=== PATIENT | female | born 1975 | race Caucasian/White ===

== ENCOUNTER 2020-08-22 06:49 | Outpatient (REF) | payer BC, SELFPAY | END 2020-08-22 06:50 | disposition home or self-care (01) | LOC: HO.LAB 06:49 | PROVIDERS: Visit Provider Internal Medicine | DX: Z20.828 Contact with and (suspected) exposure to other viral communicable diseases (principal) | CPT/HCPCS: C9803; U0003 ==

== ENCOUNTER 2025-03-28 15:38 | Outpatient (AMB) | payer BC, OTHER, SELFPAY ==
--- OUTSIDE RECORDS SUMMARY | 2025-03-28 07:09 | XMS_ITS ---
Author Organization [facility] Address [address] [place] [phone] Care Team Providers Care Asphalt Worker Name Role Phone SALBADOR MARCUM Primary Care Provider REASON FOR VISIT Referral/appt today Encounters Encounter Location Date Provider Diagnosis [facility] [address] [place] [address] 03/28/2025 SALBADOR MARCUM PLAN OF TREATMENT Next Appt Details Provider Name:SALBADOR MANNING, 04/25/2025 01:30:00 PM, [address] [place], [phone],
--- NOTE | 2025-03-28 15:41 | MHC.OFFVIS ---
Vital Signs 03/28/25 15:42 Height 5 ft 3 in Weight 189 lb BMI 33.5 BP 118/88 Blood Pressure Location Rt brachial Position Sitting Intake Visit Reasons: ENP - Tremors Intake Note: Patient referred for tremors Allergies Sulfa (Sulfonamide Antibiotics) Allergy (Unknown, Verified 03/28/25 15:42) Unknown sulfamethoxazole (From Bactrim) Allergy (Unknown, Verified 03/28/25 15:42) Unknown trimethoprim (From Bactrim) Allergy (Unknown, Verified 03/28/25 15:42) Unknown Medication List - Last Reconciled 03/28/25 by Guillermina Paredes MD atomoxetine 80 mg PO DAILY benztropine 1 mg PO DAILY cariprazine (Vraylar) 1.5 mg PO DAILY clonazepam (Klonopin) 1 mg PO DAILY hydroxyzine HCl 25 mg PO BEDTIME hyoscyamine sulfate 0.125 mg PO QIDACHS omeprazole 40 mg PO DAILY rosuvastatin (Crestor) 10 mg PO DAILY HPI Comments Details: 49y/o Right handed female with h/o Depression, anxiety, ADHD, h/o Colon Ca ( diagnosed at age 40- chemo and colon resection) comes for evaluation of tremors. She noticed tremors in her legs - R>L 1 year ago. she has mild tremors in both hands during fine motor coordination for many years .The leg tremors were new and she noticed when she was standing up and sometimes when she was sitting down. she notices sometimes when she drives.she is not able to point out to any exacerbating or reliving factors. She was started vraylar 3 mths after tremor started - she is not sure if it worsened her tremors she was started on Benztropine 1 mth after vraylar for perioral movements. she denies any back or neck pain. No weakness or numbness. SLeep- snores loudly , frequent arousals, hypersomnia , no leg cramps Cognition- has noticed some difficulty in the past 3 mths . Her mood is not well controlled. Increase in Vraylar dose did not help. she denies any suicidal thoughts. She reports h/o sharp pain in head - relieved after chiropractic treatment 20 years ago [facility] Medical History (Updated 03/28/25 @ 16:08 by Guillermina Paredes MD) Hypersomnia Snoring Coarse tremors Depression Anxiety ADHD Cancer, colon Surgical History H/O section H/O endoscopy Hx of colonoscopy Social History Alcohol intake: never Patient Tobacco Use Status: Never used Tobacco Use of substances other than those prescribed or required for medical reasons: Yes Substance Use Type: Other Substance Use Type Other:: edibles Physical Exam Vital Signs: Last Vital Signs BP 118/88 03/28/25 15:42 BMI result Body Mass Index 33.5 Const General: cooperative, healthy appearing and comfortable Nutritional Appearance: obese Orientation/consciousness: patient oriented x3 Eyes Pupils: Equal, round and reactive pupils present Neuro Other: Mallampatti grade 4 Mild Right leg tremors intermittent General: patient oriented x3, gait normal, tone normal, moves all extremities and no focal motor deficits Cranial nerves: Yes Facial sensation intact/muscles of mastication intact, Yes Equal, round and reactive pupils present, Yes Bilaterally intact EOM present, Yes Nystagmus not present, Yes Normal facial strength present, Yes Midline tongue present and Yes Symmetric palate elevation present Cognition (Neuro): normal cognition Gait exam (Neuro): Normal gait present Motor exam (neuro): 5/5 motor strength present throughout and Normal motor muscle tone present throughout Deep tendon reflexes (DTR's): Right triceps reflex intensity grade: 2+, Left triceps reflex intensity grade: 2+, Rt Biceps (C5, C6): 2+, Left biceps reflex intensity grade: 2+, Right brachioradialis reflex intensity grade: 2+, Left brachioradialis reflex intensity grade: 2+, Right patellar reflex intensity grade: 3+, Left patellar reflex intensity grade: 3+, Right ankle reflex intensity grade: 2+ and Left ankle reflex intensity grade: 2+ Coordination: [id number] test normal Assessment & Plan Assessment & Plan (1) Coarse tremors: Comment: ? mood related ? medication related ? clonus Code(s): G25.2 - Other specified forms of tremor Category: Medical (2) Snoring: Code(s): R06.83 - Snoring Category: Medical (3) Hypersomnia: Code(s): G47.10 - Hypersomnia, unspecified Category: Medical Plan No evidence of perioral dyskinesia today I will evaluate her with MRI Brain C spine X ray Sleep study to r/o sleep apnea. Orders: Orders XR cervical spine 4V Today G47.10 - Hypersomnia, unspecified, R06.83 - Snoring MR head/brain wo con Today G25.2 - Other specified forms of tremor RT home sleep study Today G47.10 - Hypersomnia, unspecified, R06.83 - Snoring Coding Level of Care Code New Pt Level 4 (29980) Complex EM visit Add On G2211 Diagnoses Coarse tremors G25.2 Snoring R06.83 Hypersomnia G47.10
[2025-03-28 15:42] VITALS: BP 118/88; BMI 33.5
--- OUTSIDE RECORDS SUMMARY | 2025-03-28 15:43 | XMS_ITS | Clinical Summary ---
Author Organization [facility] Address [address] [place] [address] Care Team Providers Care Varnishing Machine Operator Name Role Phone Abhijit George MD Primary Care Provider Allergies Active Allergy Reactions Criticality Noted Date Comments Sulfamethoxazole-Trimethoprim 2016 Sulfa Antibiotics 03/27/2017 Medications Medication Sig Dispensed Refills Start Date End Date Status Loratadine (CLARITIN PO) Take 5 mg by mouth every 12 (twelve) hours. 0 Active Oxycodone HCl 10 MG TABS Take 1 tablet (10 mg total) by mouth as needed. 0 Active omeprazole (PRILOSEC) 20 MG capsule Take 1 capsule (20 mg total) by mouth daily. 0 Active Cholecalciferol (VITAMIN D3) 2000 units capsule Take 2,000 Units by mouth daily. 0 Active buPROPion (WELLBUTRIN XL) 300 MG 24 hr tablet Take 1 tablet (300 mg total) by mouth daily. 0 Active vitamin C (ASCORBIC ACID) 500 MG tablet Take 1 tablet (500 mg total) by mouth daily. 0 Active ferrous sulfate 325 (65 FE) MG tablet Take 1 tablet (325 mg total) by mouth every morning with breakfast. 0 Active Multiple Vitamins-Minerals (MULTIVITAMIN ADULTS PO) Take by mouth daily. 0 Active Biotin 41055 MCG TBDP Take by mouth daily. 0 Active clonazePAM (KlonoPIN) 1 MG tablet Take 1 tablet (1 mg total) by mouth every night at bedtime. 0 Active citalopram (CeleXA) 10 MG tablet Take 1 tablet (10 mg total) by mouth daily. 0 Active Polyethylene Glycol 3350 (MIRALAX PO) Take by mouth. 0 Act veronica modafinil (PROVIGIL) 100 MG tablet Take 1 tablet (100 mg total) by mouth daily. 0 Active venlafaxine (EFFEXOR) 75 MG tablet Take 1 tablet (75 mg total) by mouth daily. 0 Active vortioxetine (Trintellix) 20 MG TABS tablet Take 1 tablet (20 mg total) by mouth daily. 0 Active atomoxetine (STRATTERA) 80 MG capsule Take 1 capsule (80 mg total) by mouth daily. 0 Active ondansetron (ZOFRAN) 4 MG tablet Take by mouth. 0 Active Active Problems Problem Noted Date Diagnosed Date Malignant neoplasm of sigmoid colon 04/30/2017 Family History Medical History Relation Name Comments Cancer Father melanoma Cancer Maternal Aunt 1 lymphoma Cancer Maternal Aunt 2 melonoma Cancer Mother bladder ca. Relation Name Status Comments Father Maternal Aunt 1 Maternal Aunt 2 Mother Social History Tobacco Use Types Packs/Day Years Used Date Smoking Tobacco: Never Smokeless Tobacco: Never Alcohol Use Standard Drinks/Week Comments No 0 (1 standard drink = 0.6 oz pur e alcohol) Sex and Gender Information Value Date Recorded Sex Assigned at Not on file Gender Identity Not on file Sexual Orientation Not on file Job Start Date Occupation Industry Not on file Not on file Not on file Last Filed Vital Signs Vital Sign Reading Time Taken Comments Blood Pressure 125/79 10/24/2023 9:42 AM EST Pulse 102 10/24/2023 9:42 AM EST Temperature 36.4 C (97.6 F) 10/24/2023 9:42 AM EST Respiratory Rate - - Oxygen Saturation 100% 10/24/2023 9:42 AM EST Inhaled Oxygen Concentration - - Weight 71.6 kg (157 lb 12.8 oz) 10/24/2023 9:42 AM EST Height 160 cm (5' 3 ) 10/24/2023 9:42 AM EST Body Mass Index 27.95 10/24/2023 9:42 AM EST Plan of Treatment Health Maintenance Due Date Last Done Comments Hepatitis B Vaccines (1 of 3 - 3-dose series) 1974 Hepatitis C Screening 1974 COVID-19 Vaccine (#1) 1979 Pneumococcal Vaccine (1 of 2 - PCV) 1980 Depression Screening 1986 Preventative Health Evaluation 1992 DTap / Tdap / Td (1 - Tdap) 1993 Shingrix-Zoster Vaccine (1 of 2) 1993 Cervical Cancer Screening (P ap Smear) 1995 Colon Cancer Screening (Colonoscopy) 2019 Breast Cancer Screening (Mammogram) 2024 Influenza Vaccine (Season Ended) 2025 RSV Ped < 20 months Aged Out No longe r eligible based on patient's age to complete this topic Care Teams Varnishing Machine Operator Relationship Specialty Start Date End Date Abhijit George MD PCP - General Internal Medicine 03/22/17
--- OUTSIDE RECORDS SUMMARY | 2025-03-28 15:43 | XMS_ITS | Clinical Summary ---
Author Organization [facility] Address [address] [place] [address] Phone Care Team Providers Care Senior Computer Specialist Name Role Phone Abhijit George MD Primary Care Provider + [phone] Allergies Active Allergy Reactions Criticality Noted Date Comments Sulfa (Sulfonamide Antibiotics) Rash Medium 02/28 Sulfamethoxazole-Trimethoprim Rash Medium 2016 Medications atomoxetine (STRATTERA) 80 mg capsule Take 1 capsule (80 mg total) by mouth daily. Active biotin 10,000 mcg tablet,disintegra ting Take by mouth daily. Active buPROPion XL (WELLBUTRIN XL) 300 mg 24 hr tablet Take 1 tablet (300 mg total) by mouth 1 (one) time each day. Active cholecalciferol (VITAMIN D-3) 50 mcg (2,000 unit) capsule Take 2,000 Units by mouth daily. Active citalopram (CeleXA) 10 mg tablet Take 1 tablet (10 mg total) by mouth 1 (one) time each day. Active clonazePAM (KlonoPIN) 1 mg tablet Take 1 tablet (1 mg total) by mouth every night at bedtime. Active ferrous sulfate 325 mg (65 mg elemental iron) tablet Take 1 tablet (325 mg total) by mouth every morning with breakfast. Active modafiniL (PROVIGIL) 100 mg tablet Take 1 tablet (100 mg total) by mouth 1 (one) time each day. Max Daily Amount: 100 mg Active loratadine (CLARITIN ORAL) Take 5 mg by mouth every 12 (twelve) hours. Active multivit-min/iron /folic acid/K (ADULTS MULTIVITAMIN ORAL) Take by mouth daily. Active omeprazole (PriLOSEC) [address] capsule Take 1 capsule (20 mg total) by mouth 1 (one) time each day. Active ondansetron (ZOFRAN) 4 mg tablet Take by mouth. Activ e oxyCODONE (ROXICODONE) 10 mg immediate release tablet Take 1 tablet (10 mg total) by mouth as needed. Active polyethylene glycol 3350 (MIRALAX ORAL) Take by mouth. Active venlafaxine (EFFEXOR) 75 mg tablet Take 1 tablet (75 mg total) by mouth 1 (one) time each day. Active ascorbic acid (VITAMIN C) 500 mg tablet Take 1 tablet (500 mg total) by mouth daily. Active vortioxetine (TRINTELLIX) 20 mg tablet Take 1 tablet (20 mg total) by mouth 1 (one) time each day. Active polyethylene glycol (Golytely) 236-22.74-6.74 -5.86 gram solution Take 4L by mouth once for one dose. May substitue any PEG. Starting at 6PM the night before your procedure drink 1 8oz glasses at your own pace until you complete half of the gallon. Finish 2nd half of the gallon 5 hours before your procedure. 4000 mL Active benztropine (COGENTIN) 1 mg tablet Take by mouth 2 (two) times a day. Active hydrOXYzine pamoate (VISTARIL) 25 mg capsule Take 1 capsule (25 mg total) by mouth 3 (three) times a day if needed for itching. Active hyoscyamine (ANASPAZ,LEVSIN) 0.125 mg tablet Take 1 tablet (0.125 mg total) by mouth every 4 (four) hours if needed for cramping. Active Active Problems Problem Noted Date Diagnosed Date Malignant neoplasm of sigmoi d colon (CMS/HCC V24, CMS/[facility] V28) 04/30/2017 Encounters Date Type Department Care Team Description 01/11/2025 Telephone Gastroenterology - 299 [facility] [address] [address] Cris Syed [place] 01/10/2025 7:54 AM EDT Anesthesia Event [facility] Endoscopy [address] [place] [address] Mauricio Cruz DO Vermes, Rachie, SW[employer] SUPERVISOR 01/10/2025 7:25 AM EDT - 01/10/2025 11:59 PM EDT Hospital Encounter [facility] Endoscopy [address] [place] [address] Ryder Wagner MD Vermes, Rachie, CRNA Personal history of other colon polyps; Family history of colon cancer Discharge Disposition: Home or Self Care from Last 3 Months Surgical History Surgery Date Site/Laterality Comments SECTION PROCEDURE: SECTION COLECTOMY with chemo Medical History Medical History Date Comments Depression DX:Depression Colon cancer (CMS/HCC V24, CMS/HCC V28) DX:Colon cancer (HCC) Irritable bowel syndrome DX:Irri table bowel syndrome Family History Medical History Relation Name Comments Cancer Father melanoma Cancer Mother bladder ca. Cancer Mother's Sister 1 lymphoma Cancer Mother's Sister 2 melonoma Relation Name Status Comments Father Mother Mother's Sister 1 Mother's Sister 2 Social History Tobacco Use Types Packs/Day Years Used Date Smoking Tobacco: Never Smokeless Tobacco: Never Alcohol Use Standard Drinks/Week Comments No 0 (1 standard drink = 0.6 oz pur e alcohol) Interpersonal Safety Answer Date Record ed Physical Abuse 01/10/2025 Verbal Abuse 01/10/2025 Comments No Sex and Gender Information Value Date Recorded Sex Assigned at Female 10/28/2024 2:36 PM EST Legal Sex Female 9:39 AM EST Gender Identity Female 10/28/2024 2:36 PM EST Sexual Orientation Straight 10/28/2024 2: 36 PM EST Obstetrics History Para Term AB IAB SAB Ectopic Multiple Livin g Live Births 3 Last Filed Vital Signs Vital Sign Reading Time Taken Comments Blood Pressure 109/84 01/10/2025 8:31 AM EDT Pulse 101 01/10/2025 8:31 AM EDT Temperature 36.6 C (97.8 F) 01/10/2025 8:11 AM EDT Respiratory Rate 13 01/10/2025 8:31 AM EDT Oxygen Saturation 98% 01/10/2025 8:31 AM EDT Inhaled Oxygen Concentration - - Weight 78.9 kg (174 lb) 01/10/2025 7:42 AM EDT Height 160 cm (5' 3 ) 01/10/2025 7:42 AM EDT Body Mass Index 30.82 01/10/2025 7:42 AM EDT Plan of Treatment Health Maintenance Due Date Last Done Comments COVID-19 Vaccine (#1) 1979 DTaP,Tdap,and Td Vaccines (1 - Tdap) 1993 Hepatitis B Vaccines (1 of 3 - 19+ 3-dose series) 1993 Pneumococcal Vaccine: 50+ Years (1 of 2 - PCV) 1993 Pneumococcal Vaccine: Pediatrics (0 to 5 Years) and At-Risk Patients (6 to 64 Years) (1 of 2 - PCV) 1993 Zoster Vaccines (1 of 2) 1993 Cervical Cancer Screening: Pap Smear 1995 Depression Screening 09/05/2022 HIV Screening 09/05/2022 Hepatitis C Screening 09/05/2022 Social Influencers of Health Screening 09/05/2022 Influenza Vaccine (Season Ended) 2025 Breast Cancer Screening 11/13/2026 11/13/19, 11/10/2023, 10/25/2021, Additional history exists Colorectal Cancer Screening: Colonoscopy 01/10/2035 01/10/2025 HIB Vaccines Aged Out No longer eligi ble based on patient's age to complete this topic HPV Vaccines Aged Out No longer eligi ble based on patient's age to complete this topic Hepatitis A Vaccines Aged Out No long er eligible based on patient's age to complete this topic IPV Vaccines Aged Out No longer eligi ble based on patient's age to complete this topic MMR Vaccines Aged Out No longer eligi ble based on patient's age to complete this topic Meningococcal ACWY Vaccine Aged Out N o longer eligible based on patient's age to complete this topic Meningococcal B Vaccine Aged Out No l onger eligible based on patient's age to complete this topic RSV Immunization Patients Under 20 months Aged Out No longer eligible based on patient's age to complete this topic Varicella Vaccines Aged Out No longer eligible based on patient's age to complete this topic Procedures Procedure Name Priority Date/Time Associated Diagnosis Comments COLONOSCOPY Routine 01/10/2025 8:10 AM EDT Personal history of other colon polyps Family history of colon cancer TISSUE EXAM Routine 01/10/2025 8:08 AM EDT Personal history of other colon polyps Family history of colon cancer MG MAMMO DIGITAL SCREENING W GIUSEPPE BILAT Routine 11/13/2024 11:23 AM EST Encounter for other screening for malignant neoplasm of breast from Last 3 Months or Most Recently Relevant to Health Maintenance Results * COLONOSCOPY Anesthesia - MAC; SP ENDOSCOPY (01/10/2025 8:10 AM EDT) Anatomical Region Laterality Modality Other 01/10/2025 7:45 AM EDT Impressions 01/10/2025 8:12 AM EDT - One 5 mm polyp at 50 cm proximal to the anus, removed with a cold snare. Resected and retrieved. - Patent functional end-to-end colo-colonic anastomosis, characterized by healthy appearing mucosa. - Non-bleeding internal hemorrhoids. - The examination was otherwise normal on direct and retroflexion views. Recommendation: - Discharge patient to home. - Resume previous diet. - Continue present medications. - Await pathology results. - Repeat colonoscopy for surveillance based on pathology results. - Return to GI office PRN. Narrative 01/10/2025 8:12 AM EDT [facility] GI Patient Name: Opal Bhandari Procedure Date: 01/10/2025 7:45 AM Date of : 1975 Age: 49 Room: ROOM 14 Gender: Female Note Status: Finalized Attending MD: Ryder Wagner MD, Procedure Date No Time: 01/10/2025 Procedure: Colonoscopy Indications: High risk colon cancer surveillance: Personal history of colon cancer Providers: Ryder Wagner MD Referring MD: Ryder Wagner MD Medicines: Monitored Anesthesia Care Complications: No immediate complications. Estimated Blood Loss: Estimated blood loss: none. Procedure: Pre-Anesthesia Assessment: - ASA Grade Assessment: II - A patient with mild systemic disease. - After reviewing the risks and benefits, the patient was deemed in satisfactory condition to undergo the procedure. After I obtained informed consent, the scope was passed under direct vision. Throughout the procedure, the patient's blood pressure, pulse, and oxygen saturations were monitored continuously.The Colonoscope was introduced through the anus and advanced to the cecum, identified by appendiceal orifice and ileocecal valve. The colonoscopy was performed without difficulty. The patient tolerated the procedure well. The quality of the bowel preparation was good. Findings: A 5 mm polyp was found at 50 cm proximal to the anus. The polyp was sessile. The polyp was removed with a cold snare. Resection and retrieval were complete. Estimated blood loss was minimal. There was evidence of a prior functional end-to-end colo-colonic anastomosis in the recto-sigmoid colon. This was patent and was characterized by healthy appearing mucosa. The anastomosis was traversed. Non-bleeding internal hemorrhoids were found during retroflexion. The hemorrhoids were small. The exam was otherwise without abnormality on direct and retroflexion views. Procedure Code(s): --- Professional --- 07119, Colonoscopy, flexible; with removal of tumor(s), polyp(s), or other lesion(s) by snare technique Diagnosis Code(s): --- Professional --- D12.6, Benign neoplasm of colon, unspecified Z85.038, Personal history of other malignant neoplasm of large intestine CPT copyright 2020 [employer]. All rights reserved. The codes documented in this report are preliminary and upon production control planner review may be revised to meet current compliance requirements. Ryder Wagner MD 01/10/2025 8:12:18 AM This report has been signed electronically.Ryder Wagner MD Number of Addenda: 0 Note Initiated On: 01/10/2025 7:45 AM Scope In: Scope Out: Endoscopy Department at [facility] - [address] [place] [id number] Procedure Note Ryder Wagner MD - 01/10/2025 [facility] GI Patient Name: Opal Bhandari Procedure Date: 01/10/2025 7:45 AM Date of : 1975 Age: 49 Room: ROOM 14 Gender: Female Note Status: Finalized Attending MD: Ryder Wagner MD, Procedure Date No Time: 01/10/2025 Procedure: Colonoscopy Indications: High risk colon cancer surveillance: Personalhistory of colon cancer Providers: Ryder Wagner MD Referring MD: Ryder Wagner MD Medicines: Monitored Anesthesia Care Complications: No immediate complications. Estimated Blood Loss: Estimated blood loss: none. Procedure: Pre-Anesthesia Assessment: - ASA Grade Assessment: II - A patient with mild systemic disease. - After reviewing the risks and benefits, thepatient was deemed in satisfactory condition to undergo the procedure. After I obtained informed consent, the scope was passed under direct vision. Throughout theprocedure, the patient's blood pressure, pulse, and oxygen saturations were monitored continuously.The Colonoscope was introduced through the anus and advanced to the cecum, identified by appendiceal orifice and ileocecal valve. The colonoscopy was performed without difficulty. The patient tolerated the procedure well. The quality of the bowel preparation was good. Findings: A 5 mm polyp was found at 50 cm proximal to theanus. The polyp was sessile. The polyp was removed with a cold snare. Resection and retrieval were complete. Estimated blood loss was minimal. There was evidence of a prior functional end-to-end colo-colonic anastomosis in the recto-sigmoidcolon. This was patent and was characterized by healthy appearing mucosa. The anastomosis was traversed. Non-bleeding internal hemorrhoids were found during retroflexion. The hemorrhoids were small. The exam was otherwise without abnormality ondirect and retroflexion views. Procedure Code(s): --- Professional --- 76363, Colonoscopy, flexible; with removal of tumor(s), polyp(s), or other lesion(s) by snare technique Diagnosis Code(s): --- Professional --- D12.6, Benign neoplasm of colon, unspecified Z85.038, Personal history of other malignantneoplasm of large intestine CPT copyright 2020 [employer]. All rights reserved. The codes documented in this report are preliminary and upon production control planner reviewmay be revised to meet current compliance requirements. Ryder Wagner MD 01/10/2025 8:12:18 AM This report has been signed electronically.Ryder Wagner MD Number of Addenda: 0 Note Initiated On: 01/10/2025 7:45 AM Scope In: Scope Out: Endoscopy Department at [facility] - [address] [place] [address] IMPRESSION: - One 5 mm polyp at 50 cm proximal to the anus, removed with a cold snare. Resected andretrieved. - Patent functional end-to-end colo-colonic anastomosis, characterized by healthy appearingmucosa. - Non-bleeding internal hemorrhoids. - The examination was otherwise normal on directand retroflexion views. Recommendation: - Discharge patient to home. - Resume previous diet. - Continue present medications. - Await pathology results. - Repeat colonoscopy for surveillance based on pathology results. - Return to GI office PRN. Ryder Wagner MD GI~PROCEDURE ORDERABLES Final Result * Tissue exam (01/10/2025 8:08 AM EDT) Final Diagnosis Colon, 50 cm, polyp: Tubular adenoma 01/11/2025 9:42 AM EDT [facility] Gross Description A. Large Intestine, Sigmoid Colon, polyp at 50 cm: Labeled colon honorio sig colon . Received in formalin are two soft, frye-pink to red polypoid tissues admixed with fecal/food debris measuring 0.2 cm and 0.4 cm in greatest diameter, which are wrapped in paper and submitted in toto in one cassette, two + multiple pieces, multiple levels. TS 01/11/2025 9:42 AM EDT [facility] Disclaimer Unless otherwise specified, all tissue is 10% NB formalin fixed and paraffin embedded. 01/11/2025 9:42 AM EDT [facility] Tissue Sigmoid colon structure / Unknown 01/10/2025 8:08 AM EDT 01/10/2025 11:04 AM EDT us Ryder Wagner MD LAB PATHOLOGY ORDERABLES Bhavani l Result [facility] [address] [place] [address], [place] [phone] * MG Mammo Digital Screening w Giuseppe bilat (11/13/2024 11:23 AM EST) Anatomical Region Laterality Modality Breast Bilateral Mammography 11/15/2024 7:42 AM EST Impressions 11/15/2024 7:43 AM EST Stable mammographic appearance of the breasts. No evidence of malignancy is seen. A negative mammogram in the presence of a clinically suspicious palpable abnormality does not preclude the possibility of malignancy or alter the indications for biopsy. BI-RADS CATEGORY: 2 - BENIGN RECOMMENDATION: Screening bilateral mammogram is recommended in 1 year. Mammo Location: [facility], [address] [place] [address], [address], . -------- FINAL REPORT -------- Dictated By: Alize Alvarenga Dictated Date: 11/15/2024 07:42 ET Assigned Physician: Alize Alvarenga Reviewed and Electronically Signed By: Alize Alvarenga Signed Date: 11/15/2024 07:43 ET Workstation ID: [id number] Transcribed By: Self Edit Transcribed Date: 11/15/2024 07:42 ET Narrative 11/15/2024 7:43 AM EST HISTORY: Screening. COMPARISON: 11/08/23, 10/25/21, 11/18/19 TECHNIQUE: Bilateral digital breast tomosynthesis was performed in the CC and MLO projections. Computer aided detection with iCAD ProFound AI 3D 3.1 was employed. BREAST DENSITY: B - There are scattered areas of fibroglandular density. FINDINGS: No suspicious masses, grouped microcalcifications, or areas of architectural distortion are seen. There are rare benign calcifications. The skin and vascularity are unremarkable. Procedure Note Alize Alvarenga MD - 11/15/2024 HISTORY: Screening. COMPARISON: 11/08/23, 10/25/21, 11/18/19 TECHNIQUE: Bilateral digital breast tomosynthesis was performed in the CCand MLO projections. Computer aided detection with iCAD ProFound AI 3D 3.1was employed. BREAST DENSITY: B - There are scattered areas of fibroglandular density. FINDINGS: No suspicious masses, grouped microcalcifications, or areas ofarchitectural distortion are seen. There are rare benign calcifications.The skin and vascularity are unremarkable. IMPRESSION: Stable mammographic appearance of the breasts. No evidence of malignancyis seen. A negative mammogram in the presence of a clinically suspicious palpableabnormality does not preclude the possibility of malignancy or alter theindications for biopsy. BI-RADS CATEGORY: 2 - BENIGN RECOMMENDATION: Screening bilateral mammogram is recommended in 1 year. Mammo Location: [facility], [address] [place] [address], [address], . -------- FINAL REPORT -------- Dictated By: Alize Alvarenga Dictated Date: 11/15/2024 07:42 ET Assigned Physician: Alize Alvarenga Reviewed and Electronically Signed By: Alize Alvarenga Signed Date: 11/15/2024 07:43 ET Workstation ID: [id number] Transcribed By: Self Edit Transcribed Date: 11/15/2024 07:42 ET Abhijit George MD IMG BI PROCEDURES Final Resu lt from Last 3 Months or Most Recently Relevant to Health Maintenance Insurance [facility] Advance Directives Documents on File Type Date Recorded Patient Community Outreach Specialist Expl anation Health Care Decision (hx) 01/19/2016 AD MURCIA DIRECTIVE Health Care Decision (hx) 01/19/2016 AD MURCIA DIRECTIVE Health Care Decision (hx) 01/19/2016 AD MURCIA DIRECTIVE Health Care Decision (hx) 01/19/2016 AD MURCIA DIRECTIVE Health Care Decision (hx) 01/19/2016 AD MURCIA DIRECTIVE Health Care Decision (hx) 01/19/2016 AD MURCIA DIRECTIVE Health Care Decision (hx) 01/19/2016 AD MURCIA DIRECTIVE Health Care Decision (hx) 01/19/2016 AD MURCIA DIRECTIVE Health Care Decision (hx) 01/19/2016 AD MURCIA DIRECTIVE Health Care Decision (hx) 01/19/2016 AD MURCIA DIRECTIVE Health Care Decision (hx) 01/19/2016 AD MURCIA DIRECTIVE Health Care Decision (hx) 01/19/2016 AD MURCIA DIRECTIVE Health Care Decision (hx) 01/19/2016 AD MURCIA DIRECTIVE Health Care Decision (hx) 01/19/2016 AD MURCIA DIRECTIVE Health Care Decision (hx) 01/19/2016 AD MURCIA DIRECTIVE Health Care Decision (hx) 01/19/2016 AD MURCIA DIRECTIVE Health Care Decision (hx) 01/19/2016 AD MURCIA DIRECTIVE Health Care Decision (hx) 01/19/2016 AD MURCIA DIRECTIVE Health Care Decision (hx) 01/19/2016 AD MURCIA DIRECTIVE Care Teams Senior Computer Specialist Relationship Specialty Start Date End Date Abhijit George MD [address] [place] [address] PCP - General Internal Medicine 01/15/16
== END 2025-03-28 16:14 | disposition home or self-care (01) ==
LOC: HO.HSMS 15:39
PROVIDERS: PCP Internal Medicine; Visit Provider Psychiatry & Neurology Neurology
DX: G25.2 Other specified forms of tremor (principal); R06.83 Snoring; G47.10 Hypersomnia, unspecified
CPT/HCPCS: 99204

== ENCOUNTER 2025-04-23 11:21 | Outpatient (REF) | payer OTHER, SELFPAY ==
--- OUTSIDE RECORDS SUMMARY | 2025-03-28 07:09 | XMS_ITS ---
Author Organization [facility] Address [address] [place] [phone] Care Team Providers Care Production Control Technologist Name Role Phone SALBADOR MARCUM Primary Care Provider REASON FOR VISIT Referral/appt today Encounters Encounter Location Date Provider Diagnosis [facility] [address] [place] [address] 03/28/2025 SALBADOR MARCUM PLAN OF TREATMENT Next Appt Details Provider Name:SALBADOR MANNING, 04/25/2025 01:30:00 PM, [address] [place], [phone],
--- NOTE | ~2025-04-23 | MR_ITS ---
CLINICAL HISTORY: G25.2 - Other specified forms of tremor MRI Brain WO Contrast COMPARISON: None provided FINDINGS: No evidence of acute infarction. No acute intracranial hemorrhage. No mass-effect or midline shift. Mild diffuse cortical volume loss. No hydrocephalus. Clear paranasal sinuses. Clear mastoid air cells. Unremarkable orbits. IMPRESSION: No acute intracranial findings. This document has been electronically signed by: Kike Dias MD on 04/26/2025 04:06:48
--- OUTSIDE RECORDS SUMMARY | 2025-04-23 11:24 | XMS_ITS | Clinical Summary ---
Author Organization [facility] Address [address] [place] [address] Phone Care Team Providers Care Deputy Sheriff Name Role Phone Abhijit George MD Primary Care Provider + [phone] Social History Tobacco Use Types Packs/Day Years Used Date Smoking Tobacco: Never Assessed Education Answer Date Recorded Are you interested in more education? Not on daja e 01/24/2023 Are you concerned about learning? Not on file 01/24/2023 No 01/24/2023 No 01/24/2023 Digital Access Answer Date Recorded No 02/24/2023 No 02/24/2023 No 02/24/2023 Reliable internet access at home? Not on file 02/24/2023 Device with a working camera? Not on file Comments Unknown Sex and Gender Information Value Date Recorded Sex Assigned at Not on file Legal Sex Female 2:37 PM EDT Gender Identity Not on file Sexual Orientation Not on file Plan of Treatment Health Maintenance Due Date Last Done Comments Adult Td,Tdap Booster 1975 LIPID PANEL 1975 DEPRESSION SCREENING 1986 SMOKING Hx and SMOKELESS TOB ACCO SCREENING 1987 HEPATITIS C SCREENING 1992 HIV ONE-TIME SCREENING (18-6 5 YEARS) 1992 PAP SMEAR 1995 MAMMOGRAM 2014 COLOGUARD 2019 COLONOSCOPY 2019 COLORECTAL CANCER SCREENING 2019 FIT TEST 2019 FOBT 2019 SIGMOIDOSCOPY 2019 VIRTUAL COLONOSCOPY 2019 COVID-19 VACCINE (1 - 2023-2 5 season) 2024 PNEUMOCOCCAL VACCINES (50+ y ears) (1 of 1 - PCV) 2024 ZOSTER VACCINES (1 of 2) 2024 HEPATITIS A VACCINES Aged Out No long er eligible based on patient's age to complete this topic HIB VACCINES Aged Out No longer eligi ble based on patient's age to complete this topic MENINGOCOCCAL VACCINES (ACWY) Aged Out No longer eligible based on patient's age to complete this topic MENINGOCOCCAL VACCINES (B) Aged Out N o longer eligible based on patient's age to complete this topic Medical Devices Not on file Insurance [facility] BLUE [facility] H[facility] POS BLUE [facility] H[facility] BLUE [facility] POS [facility] [place] [id number] [facility] HMO POS [facility] HMO POS Care Teams Deputy Sheriff Relationship Specialty Start Date End Date Abhijit George MD [address] [place] [address] PCP - General Internal Medicine 08/02/16 Additional Source Comments The information contained in this document represents components of the legal health record. It is not the complete legal health record.[facility]
--- OUTSIDE RECORDS SUMMARY | 2025-04-23 11:24 | XMS_ITS | Clinical Summary ---
Author Organization [facility] Address [address] [place] [address] Care Team Providers Care Regional Marketing Director Name Role Phone Abhijit George MD Primary [...] Take by mouth daily. 0 Active Biotin 39187 MCG TBDP Take by mouth daily. 0 [...] Breast Cancer Screening (Mammogram) 2024 Influenza Vaccine (#1) 2025 RSV Ped < 20 months Aged Out No longe r eligible based on patient's age to complete this topic Care Teams Regional Marketing Director Relationship Specialty Start Date End Date Abhijit George MD PCP - General Internal Medicine 03/22/17
--- OUTSIDE RECORDS SUMMARY | 2025-04-23 11:24 | XMS_ITS | Clinical Summary ---
Author Organization [facility] Address [address] [place] [address] Phone Care Team Providers Care Metal Crafts Teacher Name Role Phone Abhijit George MD Primary Care Provider + [phone] Allergies Active Allergy Reactions Criticality Noted Date [...] 5 hours before your procedure. 4000 mL 5 Active benztropine (COGENTIN) 1 mg tablet Take [...] neoplasm of sigmoi d colon (CMS/HCC V24, CMS/HCC V28) 04/30/2017 Surgical History Surgery Date Site/Laterality Comments SECTION [...] of 3 - 19+ 3-dose series) 1993 Zoster Vaccines (1 of 2) 1993 Cervical Cancer Screening: Pap Smear 1995 HIV Screening 09/05/2022 Hepatitis C Screening 09/05/2022 Social Influencers of Health Screening 09/05/2022 Pneumococcal Vaccine: 50+ Years (1 of 1 - PCV) 2024 Depression Screening 09/29/2024 Influenza Vaccine (#1) 2025 Breast Cancer Screening 11/13/2026 11/13/19 25, 11/10/2023, 10/25/2021, Additional history exists Colorectal Cancer [...] Maintenance Results * COLONOSCOPY Anesthesia - MAC; [facility] ENDOSCOPY (01/10/2025 8:10 AM EDT) Anatomical Region [...] office PRN. Narrative 01/10/2025 8:12 AM EDT [facility] GI Patient Name: Opal Mcgovern Procedure Date: 01/10/2025 7:45 AM Date of [...] retroflexion views. Procedure Code(s): --- Professional --- 82548, Colonoscopy, flexible; with removal of tumor(s), polyp(s), or other lesion(s) by snare technique Diagnosis Code(s): --- Professional --- D12.6, Benign neoplasm of colon, unspecified Z85.038, Personal history of other malignant neoplasm of large intestine CPT copyright 2020 [employer]. All rights reserved. The codes documented in this report are preliminary and upon medical administrative review may be revised to meet current compliance requirements. Ryder Wagner MD 01/10/2025 8:12:18 AM This report has been signed electronically.Ryder Wagner MD Number of Addenda: 0 Note Initiated On: 01/10/2025 7:45 AM Scope In: Scope Out: Endoscopy Department at [facility] - [address] [place] [phone] Procedure Note Ryder Wagner MD - 01/10/2025 [facility] GI Patient Name: Opal Mcgovern Procedure Date: 01/10/2025 7:45 AM Date of [...] retroflexion views. Procedure Code(s): --- Professional --- 65380, Colonoscopy, flexible; with removal of tumor(s), polyp(s), or other lesion(s) by snare technique Diagnosis Code(s): --- Professional --- D12.6, Benign neoplasm of colon, unspecified Z85.038, Personal history of other malignantneoplasm of large intestine CPT copyright 2020 [employer]. All rights reserved. The codes documented in this report are preliminary and upon medical administrative reviewmay be revised to meet current compliance requirements. Ryder Wagner MD 01/10/2025 8:12:18 AM This report has been signed electronically.Ryder Wagner MD Number of Addenda: 0 Note Initiated On: 01/10/2025 7:45 AM Scope In: Scope Out: Endoscopy Department at [facility] - [address] [place] [phone] IMPRESSION: - One 5 mm polyp at [...] results. - Return to GI office PRN. us Ryder Wagner MD GI~PROCEDURE ORDERABLES Final Result * MG Mammo Digital Screening w Giuseppe [...] year. Mammo Location: [facility], [address] [place] [address], [id number], . -------- FINAL REPORT -------- Dictated By: Alize Alvarenga Dictated Date: 11/15/2024 07:42 ET Assigned Physician: Alize Alvarenga Reviewed and Electronically Signed By: Alize Alvarenga Signed Date: 11/15/2024 07:43 ET Workstation ID: [id number] Transcribed By: Self Edit Transcribed Date: 11/15/2024 07:42 ET Narrative 11/15/2024 7:43 AM EST HISTORY: Screening. COMPARISON: 11/08/23, 10/25/21, 11/18/19 TECHNIQUE: Bilateral digital breast tomosynthesis was performed in the CC and MLO projections. Computer aided detection with [employer] AI 3D 3.1 was employed. BREAST DENSITY: [...] CCand MLO projections. Computer aided detection with [employer] AI 3D 3.1was employed. BREAST DENSITY: B [...] year. Mammo Location: [facility], [address] [place] [address], [phone], . 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
== END 2025-04-23 11:22 | disposition home or self-care (01) ==
LOC: HO.MRI 11:21
PROVIDERS: Visit Provider Psychiatry & Neurology Neurology
DX: G25.2 Other specified forms of tremor (principal)
CPT/HCPCS: 70551

== ENCOUNTER → 2025-04-23 11:21 | Outpatient (BNV) | payer OTHER, SELFPAY | PROVIDERS: Visit Provider Radiology Diagnostic Radiology | DX: G25.2 Other specified forms of tremor (principal) | CPT/HCPCS: 70551 ==

== ENCOUNTER 2025-05-18 12:24 | Outpatient (REF) | payer OTHER, SELFPAY ==
--- OUTSIDE RECORDS SUMMARY | 2025-05-14 06:07 | XMS_ITS ---
Author Organization [facility] Address [address], [place] [id number] Care Team Providers Care Take Off Worker Name Role Phone SALBADOR MARCUM Primary Care Provider [phone] MEDICATIONS Medication SIG (Take, Route, Fr equency, Duration) Notes Start Date End Date Status Macrobid 100 MG 1 capsule with food Orally every 12 hrs for 5 day(s) 05/14/2025 Active Encounters Encounter Location Date Provider Diagnosis [facility] [address] [place] [phone] 05/14/2025 SALBADOR MARCUM PLAN OF TREATMENT Medication Medication Name Sig Start Date Stop Date Notes Macrobid 100 MG 1 capsule with food Orally every 12 hrs for 5 day(s) 05/14/2025 Next Appt Details Provider Name:SALBADOR MANNING, 08/17/2025 02:15:00 PM, [address] [place], [phone],
--- NOTE | ~2025-05-18 | XR_ITS ---
EXAMINATION: XR CERVICAL SPINE CLINICAL INFORMATION: R06.83 - Snoring COMPARISON: None available. TECHNIQUE: 5 views of the cervical spine were obtained. FINDINGS: There is straightening of the cervical lordosis. There is no prevertebral soft tissue swelling. No bony foraminal narrowing is evident. XR/XR cervical spine 4V IMPRESSION: There is straightening of the expected cervical lordosis. This can be idiopathic, but can also be related to muscle spasm, or posterior soft tissue injury. Electronically signed by: Leonidas Christine MD 05/18/2025 12:52 PM EDT
--- OUTSIDE RECORDS SUMMARY | 2025-05-18 13:21 | XMS_ITS | Clinical Summary ---
Author Organization [facility] Address [address] [place] [address] Care Team Providers Care Extractor And Wringer Operator Name Role Phone Abhijit George MD [...] Take by mouth daily. 0 Active Biotin 23904 MCG TBDP Take by mouth daily. 0 [...] age to complete this topic Care Teams Extractor And Wringer Operator Relationship Specialty Start Date End Date Abhijit George MD PCP - General Internal Medicine 03/22/17
--- OUTSIDE RECORDS SUMMARY | 2025-05-18 13:21 | XMS_ITS | Clinical Summary ---
Author Organization [facility] Address [address] [place] [address] Phone Care Team Providers Care Aircraft Mechanic Electrical And Radio Name Role Phone Abhijit George MD Primary Care Provider + [phone] Allergies Active Allergy Reactions Criticality Noted Date [...] Maintenance Results * COLONOSCOPY Anesthesia - MAC; [facility] ENDOSCOPY (01/10/2025 8:10 AM EDT) Anatomical [...] office PRN. Narrative 01/10/2025 8:[address] [facility] GI Patient Name: Opal Mcgovern Procedure Date: [...] retroflexion views. Procedure Code(s): --- Professional --- 91357, Colonoscopy, flexible; with removal of tumor(s), polyp(s), or other lesion(s) by snare technique Diagnosis Code(s): --- Professional --- D12.6, Benign neoplasm of colon, unspecified Z85.038, Personal history of other malignant neoplasm of large intestine CPT copyright 2020 [employer]. All rights reserved. The codes documented in this report are preliminary and upon template layout worker review may be revised to meet current compliance requirements. Ryder Wagner MD 01/10/2025 8:12:18 AM This report has been signed electronically.Ryder Wagner MD Number of Addenda: 0 Note Initiated On: 01/10/2025 7:45 AM Scope In: Scope Out: Endoscopy Department at [facility] - [address] [place] [phone] Procedure Note Ryder Wagner MD - 01/10/2025 [facility] GI Patient Name: Opal Mcgovern Procedure Date: [...] retroflexion views. Procedure Code(s): --- Professional --- 73356, Colonoscopy, flexible; with removal of tumor(s), polyp(s), or other lesion(s) by snare technique Diagnosis Code(s): --- Professional --- D12.6, Benign neoplasm of colon, unspecified Z85.038, Personal history of other malignantneoplasm of large intestine CPT copyright 2020 [employer]. All rights reserved. The codes documented in this report are preliminary and upon template layout worker reviewmay be revised to meet current compliance requirements. Ryder Wagner MD 01/10/2025 8:12:18 AM This report has been signed electronically.Ryder Wagner MD Number of Addenda: 0 Note Initiated On: 01/10/2025 7:45 AM Scope In: Scope Out: Endoscopy Department at [facility] - [address] [place] [phone] IMPRESSION: - One 5 mm polyp at [...] year. Mammo Location: [facility], [address] [place] [address], [id number], . -------- FINAL REPORT -------- Dictated By: Alize Alvarenga Dictated Date: 11/15/2024 07:42 ET Assigned Physician: Alize Alvarenga Reviewed and Electronically Signed By: Alize Alvarenga Signed Date: 11/15/2024 07:43 ET Workstation ID: [id number] Transcribed By: Self Edit Transcribed Date: 11/15/2024 07:42 ET Narrative 11/15/2024 7:43 AM EST HISTORY: Screening. COMPARISON: 11/08/23, 10/25/21, 11/18/19 TECHNIQUE: Bilateral digital breast tomosynthesis was performed in the CC and MLO projections. Computer aided detection with [employer] AI 3D 3.1 was employed. BREAST DENSITY: [...] CCand MLO projections. Computer aided detection with [employer] AI 3D 3.1was employed. BREAST DENSITY: B [...] year. Mammo Location: [facility], [address] [place] [address], [phone], . 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
--- OUTSIDE RECORDS SUMMARY | 2025-05-18 13:21 | XMS_ITS | Clinical Summary ---
Author Organization [facility] Address [address] [place] [address] Phone Care Team Providers Care Patient Access Name Role Phone Abhijit George MD Primary Care Provider + [phone] Social History Tobacco Use Types Packs/Day Years [...] topic Medical Devices Not on file [facility] POS BL[facility] POS [employer] [facility] [place] [id number] [facility] HMO POS [facility] HMO POS Care Teams Patient Access Relationship Specialty Start Date End Date Abhijit George MD [address] [place] [address] PCP - General Internal Medicine 08/02/16 Additional Source Comments The information contained in this document represents components of the legal health record. It is not the complete legal health record.[facility]
== END 2025-05-18 12:25 | disposition home or self-care (01) ==
LOC: HO.XRAY 12:24
PROVIDERS: PCP Internal Medicine; Visit Provider Psychiatry & Neurology Neurology
DX: R06.83 Snoring (principal); G47.10 Hypersomnia, unspecified
CPT/HCPCS: 72050

== ENCOUNTER → 2025-05-18 12:28 | Outpatient (BNV) | payer OTHER, SELFPAY | PROVIDERS: PCP Internal Medicine; Visit Provider Radiology Diagnostic Radiology | DX: G47.10 Hypersomnia, unspecified (principal) | CPT/HCPCS: 72050 ==